=== PATIENT | female | born 1960 | race Asian ===

== ENCOUNTER 2019-11-12 12:47 | Emergency (ER) | payer OTHER ==
[~2019-11-12] VITALS: Ht 162.6 cm; Wt 70.8 kg
[2019-11-12 13:05] VITALS: BP 131/78; Ht 162.6 cm; Wt 70.8 kg
== END 2019-11-12 15:29 | disposition home or self-care (01) ==
LOC: ED 12:47
DX: J11.1 Influenza due to unidentified influenza virus with other respiratory manifestations (principal)
CPT/HCPCS: 87804